=== PATIENT | female | born 1945 | race Caucasian/White ===

== ENCOUNTER 2017-06-30 03:19 | Inpatient (IN) | payer MEDICARE ==
[~2017-06-30] VITALS: Ht 170.2 cm; Wt 54.4 kg
[2017-06-30] MEDS ORDERED: LORAZEPAM 0.5 MG TABLET PO PRN (04:00)
[2017-06-30] MEDS ORDERED: MAGNESIUM HYDROXIDE 30 ML UDC PO PRN (04:00)
[2017-06-30] MEDS ORDERED: MAG HYDROX/AL HYDROX/SIMETH 30 ML UDC PO PRN (04:00)
[2017-06-30] MEDS ORDERED: ZOLPIDEM TARTRATE 5 MG TABLET PO PRN (04:00)
[2017-06-30 04:33] VITALS: BP 155/90
[2017-06-30] MEDS ORDERED: TRAZ-147 PO (04:45)
[2017-06-30] MEDS ORDERED: GABA600T PO (04:45)
[2017-06-30] MEDS ORDERED: ALBU6.7H IH (04:45)
[2017-06-30] MEDS ORDERED: VENL150C2 PO (04:45)
[2017-06-30] MEDS ORDERED: OMAL150V SQ (04:45)
[2017-06-30] MEDS ORDERED: AZEL137S7 BNOSTRILS (04:45)
[2017-06-30] MEDS ORDERED: FLUT9.9S NS (04:45)
[2017-06-30] MEDS ORDERED: GABA300C PO (04:45)
[2017-06-30] MEDS ORDERED: EPIN0.3P3 IJ (04:45)
[2017-06-30] MEDS ORDERED: MINO100T PO (04:45)
[2017-06-30] MEDS ORDERED: PENT100C9 PO (04:45)
[2017-06-30] MEDS ORDERED: CEPH-570 PO (04:45)
[2017-06-30] MEDS ORDERED: CICL6.1H3 IH (04:45)
[2017-06-30 08:16] VITALS: BP 156/90
--- NOTE | 2017-06-30 08:30 | NUR ---
GPS RN NOTE: PATIENT RECEIVED IN THE ROOM RESTLESS AND ANXIOUS PT OFFERED ANXIETY MEDIATIONS WHICH PT REFUSED AND STATED "I DONT TAKE MEDICATIONS " DR MAHARAJ AWARE WAITING ORDERS WILL CONTINUE MONITORING
[2017-06-30] MEDS ORDERED: TRAZODONE 50 MG TABLET PO PRN (11:00)
[2017-06-30] MEDS: OLANZAPINE 5 MG/TAB.RAPDIS PO SCH ×2 (11:29→17:08)
[2017-06-30] MEDS: GABAPENTIN 300 MG CAPSULE PO SCH ×2 (11:29→17:08)
[2017-06-30] MEDS: PAROXETINE HCL 20 MG TABLET PO SCH (11:29)
--- NOTE | 2017-06-30 11:57 | NUR ---
GPS RN NOTE; PATIENT IN THE CHAIR SITTING ANXIOUS AND RESTLESS AT TIMES, TOOK PRESCRIBED AM MEDICATIONS NO S/S DISTRESS AT THIS TIME VSS STABLE, DR MG NOTIFIED TO RECONCILED PATIENT HOME MEDICATIONS, WILL CONTINUE MONITORING.
[2017-06-30] MEDS ORDERED: OMALIZUMAB 150 MG SQ SCH (13:30)
[2017-06-30 16:00] VITALS: BP 137/71
[2017-06-30 16:13] LABS: CALCIUM, SERUM 8.9 mg/dL (8.5-10.1); CARBON DIOXIDE 31 mmol/L (21-32); CHLORIDE 98 mmol/L (98-107); CREATININE 0.7 mg/dL (0.6-1.3); GLUCOSE 121 mg/dL (74-106); POTASSIUM 3.6 mmol/L (3.5-5.1); SODIUM SERUM 134 mmol/L (136-145); UREA NITROGEN, BLOOD 9 mg/dL (7-18)
[2017-06-30] MEDS ORDERED: MINOCYCLINE HCL PO SCH (17:00)
[2017-06-30] MEDS ORDERED: ALBUTEROL SULFATE 8 GM HFA.AER.AD IH SCH (17:00)
[2017-06-30] MEDS ORDERED: Medication Not On Formulary EA (Gabapentin (Neurontin) 600 MG) PO SCH (18:00)
[2017-06-30] MEDS: ALBUTEROL FS 2.5 MG/0.5 ML VIAL.NEB NEB SCH (19:30)
[2017-06-30 20:14] VITALS: BP 145/74
[2017-06-30] MEDS: CEPHALEXIN MONOHYDRATE 500 MG CAPSULE PO SCH (21:21)
[2017-06-30] MEDS: AZELASTINE NASAL SPRAY 30 ML BOTTLE NS SCH (21:22)
[2017-06-30] MEDS: CICLESONIDE INH SCH (21:22)
[2017-07-01] MEDS: ALBUTEROL FS 2.5 MG/0.5 ML VIAL.NEB NEB SCH ×4 (00:38→19:30)
--- NOTE | 2017-07-01 01:01 | NUR ---
Pt has vague suicidal ideations & thought blockings. She complies with care w/o any promptings.
[2017-07-01 02:09] LABS: APPEARANCE,URINE CLEAR (CLEAR); BILIRUBIN,URINE NEGATIVE (NEGATIVE); BLOOD, URINE NEGATIVE Ery/uL (NEGATIVE); COLOR,URINE YELLOW (YELLOW); KETONES,URINE NEGATIVE (NEGATIVE); LEUKOCYTE ESTERASE ,URINE TRACE (NEGATIVE); NITRITE, URINE NEGATIVE (NEGATIVE); PROTEIN,URINE NEGATIVE (NEGATIVE); UGLUCOSE NEGATIVE (NEGATIVE); UROBILINOGEN,URINE 0.2 EU/dL (0.2)
[2017-07-01 02:15] LABS: BACTERIA,URINE None seen /HPF (None Seen); RBC,URINE NONE SEEN /HPF (0-2); SQUAMOUS EPITHELIAL CELL,UR Rare /HPF (None Seen); WBC,URINE 0-2 /HPF (0-3)
[2017-07-01 07:06] LABS: BASOPHILS % (AUTO) 0.3 % (0.0-2.0); EOSINOPHILS # (AUTO) 0.1 /CMM (0.0-0.7); EOSINOPHILS % (AUTO) 0.7 % (0.0-6.0); HEMATOCRIT 40 % (33-45); HEMOGLOBIN 13.4 g/dL (11.5-14.8); LYMPHOCYTES # (AUTO) 1.7 /CMM (0.8-4.8); LYMPHOCYTES % (AUTO) 24.8 % (20.0-44.0); MEAN CORPUSCULAR HEMOGLOBIN 30 PG (26.0-33.0); MEAN CORPUSCULAR HGB CONC 34 g/dl (31.0-36.0); MEAN CORPUSCULAR VOLUME 89 fL (82-100); MONOCYTES # (AUTO) 0.8 /CMM (0.1-1.30); MONOCYTES % (AUTO) 11.9 % (2.0-12.0); NEUTROPHILS # (AUTO) 4.3 /CMM (1.8-8.9); NEUTROPHILS % (AUTO) 62.3 % (43.0-81.0); PLATELET COUNT (AUTO) 255 /CMM (150-450); RED BLOOD CELL COUNT(AUTO) 4.45 MIL/uL (4.0-5.2); WHITE BLOOD COUNT (AUTO) 6.9 K/uL (4.3-11.0)
[2017-07-01 07:26] LABS: ALANINE AMINOTRANSFERASE 31 U/L (12-78); ALBUMIN 3.2 g/dL (3.4-5.0); ALKALINE PHOSPHATASE 70 U/L (46-116); ASPARTATE AMINOTRANSFERASE 11 U/L (15-37); BILIRUBIN,TOTAL 0.5 mg/dL (0.2-1.0); CALCIUM, SERUM 9.2 mg/dL (8.5-10.1); CARBON DIOXIDE 30 mmol/L (21-32); CHLORIDE 102 mmol/L (98-107); CREATININE 0.7 mg/dL (0.6-1.3); GLUCOSE 100 mg/dL (74-106); SODIUM SERUM 139 mmol/L (136-145); TOTAL PROTEIN, SERUM 6.6 g/dL (6.4-8.2); UREA NITROGEN, BLOOD 13 mg/dL (7-18)
[2017-07-01 08:00] VITALS: BP 136/78
[2017-07-01] MEDS: OLANZAPINE 5 MG/TAB.RAPDIS PO SCH ×2 (08:34→16:54)
[2017-07-01] MEDS: PAROXETINE HCL 20 MG TABLET PO SCH (08:34)
[2017-07-01] MEDS: GABAPENTIN 300 MG CAPSULE PO SCH (08:34)
[2017-07-01] MEDS: FLUTICASONE PROPIONATE 16 GM BOTTLE NS SCH (08:35)
[2017-07-01] MEDS ORDERED: GABAPENTIN 300 MG CAPSULE PO SCH (09:00)
[2017-07-01] MEDS ORDERED: Z GUARD REMEDY 2 OZ OINT TP PRN (14:30)
[2017-07-01 15:59] VITALS: BP 117/70
[2017-07-01 16:32] LABS: CHOLESTEROL 233 mg/dL (<200); HDL CHOLESTEROL 83 mg/dL (40-60); LDL 127 mg/dL (0-99); TRIGLYCERIDES 71 mg/dL (30-150)
--- NOTE | 2017-07-01 18:49 | NUR ---
GPS/RN ARMENDARIZ CATHETER IN PLACE, DRAINING CLEAR YELLOW URINE, NO S/S OF INFECTION, NO COMPLAINTS OF PAIN, COLLECTED 1500ML OF URINE DURING SHIFT.
[2017-07-01] MEDS: AZELASTINE NASAL SPRAY 30 ML BOTTLE NS SCH (21:18)
[2017-07-01] MEDS: CICLESONIDE INH SCH (21:18)
[2017-07-01] MEDS: CEPHALEXIN MONOHYDRATE 500 MG CAPSULE PO SCH (21:18)
[2017-07-01 22:23] VITALS: BP 120/78
[2017-07-02] MEDS: ALBUTEROL FS 2.5 MG/0.5 ML VIAL.NEB NEB SCH ×4 (01:08→19:30)
[2017-07-02 08:00] VITALS: BP 128/72
[2017-07-02] MEDS: PAROXETINE HCL 20 MG TABLET PO SCH (08:06)
[2017-07-02] MEDS: FLUTICASONE PROPIONATE 16 GM BOTTLE NS SCH (08:06)
[2017-07-02] MEDS: OLANZAPINE 5 MG/TAB.RAPDIS PO SCH ×2 (08:06→16:31)
[2017-07-02 10:00] VITALS: BP 110/63
[2017-07-02] MEDS: GABAPENTIN 300 MG CAPSULE PO SCH ×2 (11:53→16:19)
--- NOTE | 2017-07-02 11:58 | NUR ---
Initial Discharge Note: Patient lives at home with her Edouard Romo [facility] [address] ([phone]). hair worker attempted to contact patient's Bright Vanegas ([phone]) however, he was unavailable. hair worker left a detailed message with direct contact information. hair worker will help form a safe and proper discharge.
--- NOTE | 2017-07-02 14:59 | NUR ---
cupola worker spoke to patient's daughter Chanel ([phone]) who stated that she was looking for placement for the patient as she does not feel like patient returning home is the best option. Patient's daughter stated that she should be the main hospital personnel director as her father gets extremely confused. cupola worker will follow-up.
--- NOTE | 2017-07-02 15:10 | NUR ---
vacuum worker spoke to patient's Bright Vanegas ([phone]) who stated that he had assisted living at home and has a caregiver that comes for six hours while the patient is there. Bright kept asking to be transferred to the nursing station and was unable to provide any information regarding patient's discharge plan. vacuum worker transferred patient's to the nursing station.
[2017-07-02 16:01] VITALS: BP 122/75
--- NOTE | 2017-07-02 19:07 | NUR ---
GPS/RN ARMENDARIZ CATH IN PLACE, NO REDNESS NOTED, NO S/S OF INFECTION, COLLECTED 1200ML OF CLEAR YELLOW URINE DURING SHIFT , NO ODOR NOTED, NO COMPLAINTS OF PAIN OR DISCOMFORT, TOLERATED WELL, NO DISTRESS, WILL CONTINUE TO MONITOR.
[2017-07-02 20:15] VITALS: BP 101/64
[2017-07-02] MEDS: CEPHALEXIN MONOHYDRATE 500 MG CAPSULE PO SCH (21:43)
[2017-07-02] MEDS: CICLESONIDE INH SCH (21:43)
[2017-07-02] MEDS: AZELASTINE NASAL SPRAY 30 ML BOTTLE NS SCH (21:44)
[2017-07-03] MEDS: ALBUTEROL FS 2.5 MG/0.5 ML VIAL.NEB NEB SCH ×4 (01:30→19:30)
[2017-07-03 08:00] VITALS: BP 122/70
[2017-07-03] MEDS: PAROXETINE HCL 20 MG TABLET PO SCH (08:01)
[2017-07-03] MEDS: GABAPENTIN 300 MG CAPSULE PO SCH ×2 (08:01→16:06)
[2017-07-03] MEDS: OLANZAPINE 5 MG/TAB.RAPDIS PO SCH ×2 (08:01→16:06)
[2017-07-03] MEDS: FLUTICASONE PROPIONATE 16 GM BOTTLE NS SCH (08:53)
--- NOTE | 2017-07-03 15:54 | NUR ---
hot blast worker met with patient's daughter Chanel ([phone]) and her in person. Patient's daughter stated that she would like her mother to be placed in a facility as she does not feel going home at the moment is the best idea. Patient's daughter was doing research for shelter facilities in her area and stated that she would contact high school social studies teacher tomorrow to further discuss placement. hot blast worker will follow-up.
--- NOTE | 2017-07-03 15:59 | NUR ---
washtub worker attempted to contact patient's Bright Vanegas ([phone]) however, he was unavailable. washtub worker left a voicemail with her contact information.
[2017-07-03 16:09] VITALS: BP 119/67
[2017-07-03 20:13] VITALS: BP 105/63
[2017-07-03] MEDS: CEPHALEXIN MONOHYDRATE 500 MG CAPSULE PO SCH (21:00)
[2017-07-03] MEDS: CICLESONIDE INH SCH (21:01)
[2017-07-03] MEDS: AZELASTINE NASAL SPRAY 30 ML BOTTLE NS SCH (21:01)
[2017-07-03] MEDS: ATORVASTATIN 10 MG TABLET PO SCH (21:17)
[2017-07-04] MEDS: ALBUTEROL FS 2.5 MG/0.5 ML VIAL.NEB NEB SCH ×4 (01:26→19:30)
[2017-07-04 08:00] VITALS: BP 104/57
[2017-07-04] MEDS: PAROXETINE HCL 20 MG TABLET PO SCH (08:36)
[2017-07-04] MEDS: OLANZAPINE 5 MG/TAB.RAPDIS PO SCH ×2 (08:36→16:50)
[2017-07-04] MEDS: GABAPENTIN 300 MG CAPSULE PO SCH ×2 (08:36→16:49)
[2017-07-04] MEDS: FLUTICASONE PROPIONATE 16 GM BOTTLE NS SCH (09:00)
--- NOTE | 2017-07-04 12:38 | NUR ---
SW spoke with pt's daughter Chanel ([phone]) who requested referral to be faxed to [facility] in [place] [address], [place] [address] , [facility] [address], [place] [address] , and [facility] Sanchez [facility] [address], [place] [address] . Will follow up.
[2017-07-04] MEDS: ACETAMINOPHEN 325 MG TABLET PO PRN (13:05)
--- NOTE | 2017-07-04 15:33 | NUR ---
GPS RN NOTE: PT WAS SEEN BY Ana Laura OSBORNE N.P.NOTIFIED PATIENT HAS ARMENDARIZ CATH ORDER TO CONTINUE ARMENDARIZ CATH, NO NEW ORDER AT THIS TIME WILL CONTINUE MONITORING FOR SAFETY AND BEHAVIOR Q 15 MIN
[2017-07-04 15:42] VITALS: BP 106/53
[2017-07-04 20:00] VITALS: BP 108/71
[2017-07-04] MEDS: CICLESONIDE INH SCH (20:40)
[2017-07-04] MEDS: ATORVASTATIN 10 MG TABLET PO SCH (20:40)
[2017-07-04] MEDS: CEPHALEXIN MONOHYDRATE 500 MG CAPSULE PO SCH (20:40)
[2017-07-04] MEDS: AZELASTINE NASAL SPRAY 30 ML BOTTLE NS SCH (20:41)
[2017-07-05] MEDS: ALBUTEROL FS 2.5 MG/0.5 ML VIAL.NEB NEB SCH ×4 (01:03→19:30)
[2017-07-05 08:00] VITALS: BP 116/65
[2017-07-05] MEDS: OLANZAPINE 5 MG/TAB.RAPDIS PO SCH ×2 (08:34→16:38)
[2017-07-05] MEDS: GABAPENTIN 300 MG CAPSULE PO SCH ×2 (08:34→16:37)
[2017-07-05] MEDS: FLUTICASONE PROPIONATE 16 GM BOTTLE NS SCH (08:35)
[2017-07-05] MEDS: PAROXETINE HCL 10 MG TABLET PO SCH (08:37)
[2017-07-05 15:59] VITALS: BP 125/78
--- NOTE | 2017-07-05 19:19 | NUR ---
GPS/RN NOTE: AWAKE, RESTING IN BED, ORIENTED X3, INITIATES CONVERSATION. NO APPARENT DISTRESS NOTED. HAS ARMENDARIZ IN SITU, HAS 1:1 SITTER AT THE BEDSIDE FOR SAFETY.
[2017-07-05 20:00] VITALS: BP 104/67
[2017-07-05] MEDS: AZELASTINE NASAL SPRAY 30 ML BOTTLE NS SCH (21:06)
[2017-07-05] MEDS: ATORVASTATIN 10 MG TABLET PO SCH (21:06)
[2017-07-05] MEDS: CEPHALEXIN MONOHYDRATE 500 MG CAPSULE PO SCH (21:06)
[2017-07-05] MEDS: CICLESONIDE INH SCH (21:07)
[2017-07-06] MEDS: ALBUTEROL FS 2.5 MG/0.5 ML VIAL.NEB NEB SCH ×4 (01:30→19:30)
[2017-07-06 08:00] VITALS: BP 122/68
[2017-07-06] MEDS: GABAPENTIN 300 MG CAPSULE PO SCH ×2 (08:41→17:58)
[2017-07-06] MEDS: PAROXETINE HCL 10 MG TABLET PO SCH (08:41)
[2017-07-06] MEDS: OLANZAPINE 5 MG/TAB.RAPDIS PO SCH ×2 (08:41→17:58)
[2017-07-06] MEDS: FLUTICASONE PROPIONATE 16 GM BOTTLE NS SCH (08:42)
[2017-07-06 16:00] VITALS: BP 107/63
[2017-07-06 20:00] VITALS: BP 103/59
--- NOTE | 2017-07-06 20:00 | NUR ---
RN NOTES: PATIENT REFUSED BREATHING TREATMENT AGAIN, STATING THAT IT WILL HAVE INTERACTIONS WITH HER OTHER MEDICATIONS.
[2017-07-06] MEDS: CEPHALEXIN MONOHYDRATE 500 MG CAPSULE PO SCH (21:07)
[2017-07-06] MEDS: AZELASTINE NASAL SPRAY 30 ML BOTTLE NS SCH (21:07)
[2017-07-06] MEDS: CICLESONIDE INH SCH (21:07)
[2017-07-06] MEDS: ATORVASTATIN 10 MG TABLET PO SCH (21:08)
[2017-07-07] MEDS: ALBUTEROL FS 2.5 MG/0.5 ML VIAL.NEB NEB SCH ×4 (01:30→19:30)
[2017-07-07 07:51] VITALS: BP 128/76
[2017-07-07] MEDS: FLUTICASONE PROPIONATE 16 GM BOTTLE NS SCH (09:08)
[2017-07-07] MEDS: GABAPENTIN 300 MG CAPSULE PO SCH ×2 (09:08→17:35)
[2017-07-07] MEDS: OLANZAPINE 5 MG/TAB.RAPDIS PO SCH ×2 (09:09→17:35)
[2017-07-07] MEDS: PAROXETINE HCL 10 MG TABLET PO SCH (09:09)
[2017-07-07] MEDS: ACETAMINOPHEN 325 MG TABLET PO PRN (09:30)
--- NOTE | 2017-07-07 09:30 | NUR ---
ADMINISTERED TYLENOL 650 MG PO PRN FOR GENERALIZED PAIN 5/10, PER PATIENT REQUEST, CONTINUED MONITORING.
[2017-07-07 15:47] VITALS: BP 103/64
[2017-07-07 20:09] VITALS: BP 107/61
[2017-07-07] MEDS: ATORVASTATIN 10 MG TABLET PO SCH (21:01)
[2017-07-07] MEDS: AZELASTINE NASAL SPRAY 30 ML BOTTLE NS SCH (21:01)
[2017-07-07] MEDS: CEPHALEXIN MONOHYDRATE 500 MG CAPSULE PO SCH (21:01)
[2017-07-07] MEDS: CICLESONIDE INH SCH (21:01)
[2017-07-08] MEDS: ALBUTEROL FS 2.5 MG/0.5 ML VIAL.NEB NEB SCH ×4 (00:33→19:30)
[2017-07-08 08:00] VITALS: BP 123/74
[2017-07-08] MEDS: GABAPENTIN 300 MG CAPSULE PO SCH ×3 (08:06→16:23)
[2017-07-08] MEDS: FLUTICASONE PROPIONATE 16 GM BOTTLE NS SCH (08:07)
[2017-07-08] MEDS: PAROXETINE HCL 10 MG TABLET PO SCH (08:07)
[2017-07-08] MEDS: OLANZAPINE 5 MG/TAB.RAPDIS PO SCH ×2 (08:11→16:23)
[2017-07-08] MEDS ORDERED: hydrOXYzine PAMOATE 25 MG CAPSULE PO PRN (10:30)
--- NOTE | 2017-07-08 13:18 | NUR ---
RN NOTES PER MD ORDER, ARMENDARIZ CATH REMOVED. 580 ML OF OUTPUT WITHIN BAG. ENCOURAGED PT TO AMBULATE AND INCREASE FLUID INTAKE. PT TOLERATED REMOVAL OF FC. ORDER TAKEN AND CARRIED OUT.
--- NOTE | 2017-07-08 14:41 | NUR ---
AC spoke with Edd from [facility] in [place] [address], [place] [address] and he says they can accommodate the patient but would need to speak with family. AC provided pt's daughter, Chanel's phone number [phone]. Edd promised to call back with an outcome.
--- NOTE | 2017-07-08 14:42 | NUR ---
Pt. also faxed a referral to [address] , [place] [address] , [facility] at [address] [address] and [facility] [address] [place] [phone] . Will follow up
--- NOTE | 2017-07-08 15:09 | NUR ---
SW spoke with pt's daughter Chanel ([phone]) and notified her of updates. She appreciated the call.
[2017-07-08 16:00] VITALS: BP 106/68
--- NOTE | 2017-07-08 17:41 | NUR ---
RN NOTES PT VOIDED 50 ML AFTER REMOVAL OF FC. BLADDER SCAN REVEALED 507 ML. NOTIFIED CHARANJIT TAYLOR. AWAITING ORDERS FOLLOWING CONSULTATION WITH UROLOGIST.
--- NOTE | 2017-07-08 19:00 | NUR ---
GP NOTES NOTIFIED CHARANJIT TAYLOR REGARDING PT VOID OF 325 ML AND POST-VOID BLADDER SCAN SHOWING 611 ML RESIDUAL. PER MD ORDER DO NOT INSERT FC, ASSIST PT TO EMPTY BLADDER Q2H.
[2017-07-08 19:36] VITALS: BP 105/61
--- NOTE | 2017-07-08 20:59 | NUR ---
GPS RN NOTE: PATIENT VOIDED 200ML AND THE PVR = 411ML, PATIENT DENIES ANY PAIN AND DISCOMFORT ON HER BLADDER, PATIENT REFUSED ARMENDARIZ CATHETER INSERTION, PATIENT IS COOPERATIVE, PER PATIENT SHE WILL TRY AGAIN AFTER 2 HOURS. ON 1:1 WILL CONTINUE TO MONITOR.
[2017-07-08] MEDS: AZELASTINE NASAL SPRAY 30 ML BOTTLE NS SCH (21:12)
[2017-07-08] MEDS: CEPHALEXIN MONOHYDRATE 500 MG CAPSULE PO SCH (21:13)
[2017-07-08] MEDS: ATORVASTATIN 10 MG TABLET PO SCH (21:13)
[2017-07-08] MEDS: CICLESONIDE INH SCH (21:13)
[2017-07-08] MEDS: ACETAMINOPHEN 325 MG TABLET PO PRN (21:37)
--- NOTE | 2017-07-08 23:30 | NUR ---
GPS MCKENZIE NOTE: PATIENT FBWUCP=752 ML, PVR UOKK=552MH, PATIENT DENIES PAIN AND DISCOMFORT INTO HER BLADDER. WILL CONTINUE TO MONITOR Addendum: 07/09/17 at 0004 by MUNIRA RUIZ II, RN PATIENT STILL MOTIVATED TO TRY AFTER 2 HOURS AND STILL REFUSED ARMENDARIZ CATHETER INSERTION
[2017-07-09] MEDS: ALBUTEROL FS 2.5 MG/0.5 ML VIAL.NEB NEB SCH (00:57)
--- NOTE | 2017-07-09 01:55 | NUR ---
GPS RN NOTE: PATIENT URINATED 200ML. PVR = 415ML. PATIENT MOTIVATED AND COOPERATIVE. PER PATIENT "ITS GOING DOWN". REFUSED ARMENDARIZ CATHETER INSERTION. WILL CONTINUE TO MONITOR
--- NOTE | 2017-07-09 02:43 | NUR ---
GPS RN NOTE: PATIENT NOTED FOR REFUSING BREATHING TX FOR THE LAST 9 DAYS, PER RT RECOMMENDATION TO CHANGE THE ORDER INTO PRN, NOTIFIED DR. TAYLOR WITH ORDER GIVEN NOTED AND CARRIED OUT. PATIENT HAS NO SOB, NO ACUTE DISTRESS, BREATHING EVEN AND UNLABORED, DENIES PAIN AND DISCOMFORT, WILL CONTINUE TO MONITOR
[2017-07-09] MEDS ORDERED: ALBUTEROL FS 2.5 MG/0.5 ML VIAL.NEB NEB PRN (03:00)
--- NOTE | 2017-07-09 05:00 | NUR ---
GPS RN NOTE: URINE OUTPUT = 250ML, PVR = 573ML, NO ABDOMINAL DISTENTION, DENIES PAIN AND DISCOMFORT ON THE BLADDER. WILL CONTINUE TO MONITOR AND WILL INFORM THE UROLOGIST
[2017-07-09 08:00] VITALS: BP 107/65
[2017-07-09] MEDS: OLANZAPINE 5 MG/TAB.RAPDIS PO SCH ×2 (08:12→16:19)
[2017-07-09] MEDS: PAROXETINE HCL 10 MG TABLET PO SCH (08:12)
[2017-07-09] MEDS: GABAPENTIN 300 MG CAPSULE PO SCH ×3 (08:12→16:19)
[2017-07-09] MEDS: FLUTICASONE PROPIONATE 16 GM BOTTLE NS SCH (08:13)
[2017-07-09] MEDS ORDERED: Z GUARD REMEDY 2 OZ OINT TP PRN (09:00)
[2017-07-09 16:13] VITALS: BP 112/68
--- NOTE | 2017-07-09 16:24 | NUR ---
AC received a call from Aura from [facility] in [place] [address], [place] [address] She said they have made arrangements with pt's daughter, Chanel's [phone] who agreed with patient being discharged to [facility]. AC called and left a voicemail for Chanel.
--- NOTE | 2017-07-09 19:20 | NUR ---
GPS RN NOTE: TOOK REPORT FROM THE DAY SHIFT NURSE STATING THAT PER MEDICAL DOCTOR PLAN IS TO CONTINUE TO ENCOURAGE PATIENT TO VOID AND TO MONITOR URINE OUTPUT. WILL CONTINUE TO MONITOR
[2017-07-09 20:41] VITALS: BP 134/79
--- NOTE | 2017-07-09 21:30 | NUR ---
GPS RN NOTE: ENCOURAGED PATIENT TO VOID, PATIENT STATED SHE HAS NO URGE AND REQUESTED TO JUST DO THE BLADDER SCANNER. BLADDER SCANNER DONE WITH A RESULT OF 600ML. PATIENT ABDOMEN NOT DISTENDED, DENIES ANY PAIN AND DISCOMFORT, WILL CONTINUE TO MONITOR
[2017-07-09] MEDS: ATORVASTATIN 10 MG TABLET PO SCH (22:12)
[2017-07-09] MEDS: CEPHALEXIN MONOHYDRATE 500 MG CAPSULE PO SCH (22:12)
[2017-07-09] MEDS: AZELASTINE NASAL SPRAY 30 ML BOTTLE NS SCH (22:12)
[2017-07-09] MEDS: CICLESONIDE INH SCH (22:13)
[2017-07-09] MEDS: ACETAMINOPHEN 325 MG TABLET PO PRN (22:17)
--- NOTE | 2017-07-10 01:00 | NUR ---
GPS RN NOTE: PATIENT VOIDED 300 ML. BLADDER SCAN DONE POST 5 MINS AND WITH A RESULT OF 420 ML. ABDOMEN SOFT AND NON DISTENDED. DENIES ANY PAIN AND DISCOMFORT. PATIENT APPRECIATED. WILL CONTINUE TO MONITOR
--- NOTE | 2017-07-10 03:00 | NUR ---
GPS RN NOTE: PATIENT ASLEEP IN BED, AROUSABLE TO VERBAL AND TACTILE STIMULI. ENCOURAGED THE PATIENT TO URINATE, PER PATIENT, SHE DOES NOT HAVE THE URGE YET, WILL TRY AGAIN LATER. WILL CONTINUE TO MONITOR
--- NOTE | 2017-07-10 06:06 | NUR ---
GPS RN NOTE: ENCOURAGED THE PATIENT TO URINATE, PATIENT VOIDED 200 ML, BLADDER SCAN DONE POST 5 MINS WITH A RESULT OF 738ML, PATIENT C/O PAIN UPON PALPATION. BLADDER SLIGHTLY DISTENDED. PAGED DR. HOLLEY VIA [facility]. AWAITING CALL BACK.
--- NOTE | 2017-07-10 06:43 | NUR ---
GPS RN NOTE: DR. DILLON HOLLEY CALLED BACK WITH ORDER TO REINSERT ARMENDARIZ CATHETER X 48 HOURS NOTED.
--- NOTE | 2017-07-10 06:49 | NUR ---
GPS RN NOTE: TOGETHER WITH THE CHARGE NURSE, SPOKE TO THE PATIENT ABOUT THE DOCTORS ORDER OF INSERTION OF THE ARMENDARIZ CATHETER. PATIENT REFUSED AT THIS TIME. STATED THAT SHE IS STILL WANTS TO SLEEP AND JUST DO IT LATER IN THE MORNING. WILL ENDORSE TO THE NEXT SHIFT
[2017-07-10 08:00] VITALS: BP 102/54
[2017-07-10] MEDS: GABAPENTIN 300 MG CAPSULE PO SCH ×3 (08:20→17:00)
[2017-07-10] MEDS: PAROXETINE HCL 10 MG TABLET PO SCH (08:21)
[2017-07-10] MEDS: OLANZAPINE 5 MG/TAB.RAPDIS PO SCH ×2 (08:21→17:00)
[2017-07-10] MEDS: FLUTICASONE PROPIONATE 16 GM BOTTLE NS SCH (08:23)
--- NOTE | 2017-07-10 12:00 | NUR ---
RN NOTE :PATIENT URINE OUT PUT 600 CC ,BLADDER SCAN DONE RESULT 0 AT THIS TIME NOTIFIED WITH NEW ORDER "DO NOT INSERT F/C".
--- NOTE | 2017-07-10 13:11 | NUR ---
court worker faxed physicians report to Rashard Trejo from [facility] in [place] [address], [place], [place] [id number] fax: [phone]. [address] worker will follow-up.
[2017-07-10 16:19] VITALS: BP 101/57
--- NOTE | 2017-07-10 16:47 | NUR ---
SW spoke with pt's daughter Chanel ([phone]) to inform her of patient's discharge tomorrow. Patient's daughter was agreeable with the discharge plan.
--- NOTE | 2017-07-10 18:00 | NUR ---
RN NOTE: URINE OUT PUT 1400CC .
--- NOTE | 2017-07-10 18:30 | NUR ---
RN NOTE :TOTAL URINE OUT PUT 1400
[2017-07-10 20:17] VITALS: BP 104/62
[2017-07-10] MEDS: ATORVASTATIN 10 MG TABLET PO SCH (21:38)
[2017-07-10] MEDS: AZELASTINE NASAL SPRAY 30 ML BOTTLE NS SCH (21:38)
[2017-07-10] MEDS: CEPHALEXIN MONOHYDRATE 500 MG CAPSULE PO SCH (21:38)
[2017-07-10] MEDS: CICLESONIDE INH SCH (21:39)
[2017-07-11 08:00] VITALS: BP 127/75
[2017-07-11] MEDS: FLUTICASONE PROPIONATE 16 GM BOTTLE NS SCH (08:54)
[2017-07-11] MEDS: OLANZAPINE 5 MG/TAB.RAPDIS PO SCH (08:55)
[2017-07-11] MEDS: GABAPENTIN 300 MG CAPSULE PO SCH (08:55)
[2017-07-11] MEDS: PAROXETINE HCL 10 MG TABLET PO SCH (08:55)
--- NOTE | 2017-07-11 10:01 | NUR ---
Discharge Note: Patient will be discharged to [facility] in [place] [address] , [place] [address] . Via facility transportation. Patient's daughter Chanel ([phone]) has been notified and was agreeable with the discharge plan. Patient mood and affect are appropriate. Patient denies suicidal and homicidal ideations. Patient will follow-up with her psychiatrist Dr. Delacruz on July 17, 2017 at 2:00pm in which she will discuss her overuse of prescription medication. Facilitated info to IDT team who are in agreement with discharge arrangement. The multidisciplinary exitcare form was done, printed, signed, and given to the patient.
--- NOTE | 2017-07-11 10:06 | NUR ---
DR. MAHARAJ GAVE AN ORDER TO D/C HOLD AND D/C TO [facility]. PT. WITHOUT DISTRESS, DENIES SUICIDAL AND HOMICIDAL AND TO FOLLOW UP WITH PSYCH AND MEDICAL DOCTORS.
--- NOTE | 2017-07-11 13:11 | NUR ---
pt discharge by dr. fitzgerald. fund development manager dr de la torre agrees with discharge plan. pt going to [facility] [address] [facility] [address]. pts' daughter, luz, has been notified. pt is alert oriented x 2 and ambulatory. she is calm and cooperative. no acute distress noted. denies s/i and/or h/i at time of discharge. skin intact. pictures to taken. pt received both psych and medical prescription along with exitcare instruction. belongings returned to patient. pt left in stable condition. pt picked up by an employee of the assisted living.
== END 2017-07-11 13:10 | DRG 885 ==
LOC: GPS 03:19
PROVIDERS: ADMIT Psychiatry & Neurology Psychiatry; ATTEND Nurse Practitioner Acute Care
DX: F32.3 Major depressive disorder, single episode, severe with psychotic features (principal); G62.9 Polyneuropathy, unspecified; R45.851 Suicidal ideations; J44.9 Chronic obstructive pulmonary disease, unspecified; F29 Unspecified psychosis not due to a substance or known physiological condition; E78.5 Hyperlipidemia, unspecified; F60.89 Other specific personality disorders; F41.9 Anxiety disorder, unspecified; N30.10 Interstitial cystitis (chronic) without hematuria; N31.9 Neuromuscular dysfunction of bladder, unspecified; N39.498 Other specified urinary incontinence; Z79.899 Other long term (current) drug therapy; J45.909 Unspecified asthma, uncomplicated
CPT/HCPCS: 36415; 71010-TC; 80048-TC; 80053-TC; 80061-TC; 81000-TC; 85025-TC; 87081-TC; 87086-TC; Z7610